=== PATIENT | female | born 1935 | race Caucasian/White ===

== ENCOUNTER 2017-05-23 18:30 | Inpatient (IN) | payer MEDICARE, BC ==
[~2017-05-23] VITALS: Ht 157.5 cm; Wt 39.5 kg
--- NOTE | 2017-05-23 18:42 | NUR ---
PT BIBRA FROM HOME TO ER BED 10. PER REPORT, PT WAS FOUND BY NEIGHBOR IN THE FLOOR. PT STATES TRIP AND FALL AND UNABLE TO GET UP. LUE BRUISING NOTED. OPT STATES L SHOULDER PAIN. GOWNED AND PLACED ON MONITOR. HYPERTENSIVE PHARMACY AIDE OTHERWISE STABLE VITALS. AWAITING MD RODGERS.
--- NOTE | 2017-05-23 18:45 | NUR ---
DR FLORES AT BEDSIDE FOR EVAL.
[2017-05-23] MEDS ORDERED: MULT-659 PO (18:50)
[2017-05-23] MEDS ORDERED: HYDR25TA4 PO (18:50)
[2017-05-23] MEDS ORDERED: CHOL100044 PO (18:50)
--- NOTE | 2017-05-23 18:55 | NUR ---
IV LINE STARTED BLOOD DRAWN AND SENT TO LAB.
[2017-05-23] MEDS ORDERED: IV NS 0.9% 500 ML BAG IV ONE (19:00)
[2017-05-23 19:16] LABS: INR 1.05 (0.87-1.13); PROTHROMBIN TIME 10.9 SECS (9.5-12.7)
[2017-05-23 19:28] LABS: TROPONIN I < 0.017 ng/mL (0.00-0.056)
[2017-05-23 19:31] LABS: CARBON DIOXIDE 30 mmol/L (21-32); CHLORIDE 97 mmol/L (98-107); CREATININE 0.3 mg/dL (0.6-1.3); GLUCOSE 128 mg/dL (74-106); SODIUM SERUM 136 mmol/L (136-145); UREA NITROGEN, BLOOD 8 mg/dL (7-18)
--- NOTE | 2017-05-23 19:31 | NUR ---
RADIOLOGY AT BEDSIDE FOR CHEST AND L HUMERUS XRAY.
[2017-05-23 19:37] LABS: ALANINE AMINOTRANSFERASE 23 U/L (12-78); ALBUMIN 4.1 g/dL (3.4-5.0); ALKALINE PHOSPHATASE 98 U/L (46-116); ASPARTATE AMINOTRANSFERASE 28 U/L (15-37); BILIRUBIN,DIRECT 0.5 mg/dL (0.0-0.2); BILIRUBIN,TOTAL 2.7 mg/dL (0.2-1.0); LIPASE 91 U/L (73-393); TOTAL PROTEIN, SERUM 7.9 g/dL (6.4-8.2)
[2017-05-23 19:59] LABS: APPEARANCE,URINE Clear (CLEAR); BILIRUBIN,URINE Negative (NEGATIVE); BLOOD, URINE Trace-intact Ery/uL (NEGATIVE); COLOR,URINE Dark (YELLOW); KETONES,URINE 40 (NEGATIVE); LEUKOCYTE ESTERASE ,URINE Negative (NEGATIVE); NITRITE, URINE Negative (NEGATIVE); PH,URINE 7.5 (5.0-8.0); PROTEIN,URINE Negative (NEGATIVE); UGLUCOSE Negative (NEGATIVE)
--- NOTE | 2017-05-23 20:11 | NUR ---
PT TO RADIOLOGY FOR HEAD AND C SPINE CT SCAN VIA [facility].
--- NOTE | 2017-05-23 20:27 | NUR ---
CALLED ANALILIA JARAMILLO, TEMPLATE FITTER DR REDDY WAS PAGED.
[2017-05-23 20:29] LABS: BACTERIA,URINE None seen /HPF (None Seen); SQUAMOUS EPITHELIAL CELL,UR Few /HPF (None Seen); WBC,URINE 0-2 /HPF (0-3)
--- NOTE | 2017-05-23 20:51 | NUR ---
CALLED ANALILIA JARAMILLO, ICT HELP DESK TECHNICIAN WAS REPAGED.
[2017-05-23] MEDS ORDERED: MAGNESIUM HYDROXIDE 30 ML UDC PO PRN (21:00)
[2017-05-23] MEDS ORDERED: ZOLPIDEM TARTRATE 5 MG TABLET PO PRN (21:00)
[2017-05-23] MEDS ORDERED: MAG HYDROX/AL HYDROX/SIMETH 30 ML UDC PO PRN (21:00)
[2017-05-23] MEDS ORDERED: Z GUARD REMEDY 2 OZ OINT TP PRN (21:00)
[2017-05-23] MEDS ORDERED: ACETAMINOPHEN 325 MG TABLET PO PRN (21:00)
[2017-05-23] MEDS ORDERED: ONDANSETRON HCL/PF 4 MG/2 ML VIAL IVP PRN (21:00)
[2017-05-23 21:01] LABS: BASOPHILS # (AUTO) 0.1 /CMM (0.0-0.2); BASOPHILS % (AUTO) 0.3 % (0.0-2.0); EOSINOPHILS # (AUTO) 0.2 /CMM (0.0-0.7); EOSINOPHILS % (AUTO) 0.7 % (0.0-6.0); HEMATOCRIT 25 % (33-45); HEMOGLOBIN 8.8 g/dL (11.5-14.8); LYMPHOCYTES # (AUTO) 0.8 /CMM (0.8-4.8); LYMPHOCYTES % (AUTO) 3.7 % (20.0-44.0); MEAN CORPUSCULAR HEMOGLOBIN 34 PG (26.0-33.0); MEAN CORPUSCULAR HGB CONC 35 g/dl (31.0-36.0); MEAN CORPUSCULAR VOLUME 98 fL (82-100); MONOCYTES # (AUTO) 2.8 /CMM (0.1-1.30); MONOCYTES % (AUTO) 13.2 % (2.0-12.0); NEUTROPHILS # (AUTO) 17.7 /CMM (1.8-8.9); NEUTROPHILS % (AUTO) 82.1 % (43.0-81.0); PLATELET COUNT (AUTO) 310 /CMM (150-450); RDW COEFFICIENT OF VARIATION 16.3 (11.5-15.0); RED BLOOD CELL COUNT(AUTO) 2.57 MIL/uL (4.0-5.2); WHITE BLOOD COUNT (AUTO) 21.6 K/uL (4.3-11.0)
--- NOTE | 2017-05-23 21:30 | NUR ---
REPORT GIVEN TO JAKE. PT AWAITING TRANSFER TO FLOOR.
[2017-05-23 22:00] VITALS: BP 144/83
[2017-05-23] MEDS ORDERED: HYDROCODONE/APAP 5/325MG 1 EACH TABLET ONE (22:13)
[2017-05-23] MEDS: HYDROCODONE/APAP 5/325MG 1 EACH TABLET PO PRN (22:15)
--- NOTE | 2017-05-23 22:30 | NUR ---
ADMISSION NOTE; A 81 YRS OLD FEMALE ADMITTED TO THE UNIT WITH THE DX OF GROUND LEVEL FALL WITH LEFT HUMERUS FRACTURE . L ARM WITH ARM IMMOBILIZER . PT IS A/O X 3 , BREATHING EVEN AND UNLABORED ON ROOM AIR . PT IS FULL CODE . PRN NORCO 5/325 PO GIVEN FOR PAIN , ALL ADMISSION ASSESSMENT DONE, BELONGINGS CHECKED . SKIN ASSESSED . HX PROVIDED BY PT HERSELF. WILL CONTINUE TO MONITOR .
[2017-05-23 23:28] LABS: LYMPHOCYTES % (MANUAL) 4 % (16-48); MONOCYTES % (MANUAL) 14 % (0-11.0); NEUTROPHILS % (MANUAL) 82 (42-76)
[2017-05-24 04:00] VITALS: BP 143/73
[2017-05-24 06:56] LABS: ALANINE AMINOTRANSFERASE 21 U/L (12-78); ALBUMIN 3.3 g/dL (3.4-5.0); ALKALINE PHOSPHATASE 72 U/L (46-116); ASPARTATE AMINOTRANSFERASE 24 U/L (15-37); BILIRUBIN,TOTAL 2.1 mg/dL (0.2-1.0); CALCIUM, SERUM 8.7 mg/dL (8.5-10.1); CARBON DIOXIDE 29 mmol/L (21-32); CHLORIDE 101 mmol/L (98-107); CREATININE 0.3 mg/dL (0.6-1.3); GLUCOSE 122 mg/dL (74-106); MAGNESIUM 1.6 mg/dL (1.8-2.4); PHOSPHORUS 3.8 mg/dL (2.5-4.9); POTASSIUM 3.7 mmol/L (3.5-5.1); SODIUM SERUM 137 mmol/L (136-145); TOTAL PROTEIN, SERUM 6.8 g/dL (6.4-8.2); UREA NITROGEN, BLOOD 12 mg/dL (7-18)
--- NOTE | 2017-05-24 07:14 | NUR ---
RN EOS NOTE; PT REMAINED STABLE DURING THE SHIFT. NO ANY DISTRESS NOTED. ALL NEEDS ATTENDED PROMPTLY. DENIED NAY PAIN AT THIS TIME . WILL ENDORSE TO NEXT SHIFT RN FOR CONTINUITY OF CARE.
--- NOTE | 2017-05-24 07:51 | NUR ---
RN/MS OPENING NOTES RECEIVED PATIENT AWAKE RESTING COMFORTABLY IN BED WITH EYES OPEN. PATIENT IS AOX3. PATIENT COMPLAINING OF PAIN 5/10 ON THE LEFT HUMERUS. PATIENT DENIES SOB. NO ACUTE DISTRESS NOTED. RESPIRATIONS APPEAR EVEN AND UNLABORED. PATIENT HAS LEFT SLING IN PLACE. PATIENT HAS BRUISING ON THE LEFT ARM AND A SKIN TEAR TO THE RIGHT ELBOW. WILL CONTINUE TO MONITOR. RIGHT FOREARM 20 G PATENT AND INTACT. NO S/S OF INFILTRATION. BED LOCKED IN THE LOWEST POSITION WITH SIDERAILS UP X2. CALL LIGHT WITHIN REACH. WILL CONTINUE TO MONITOR, ASSESS AND EDUCATE PATIENT THROUGHOUT SHIFT.
[2017-05-24 08:00] VITALS: BP 137/68
[2017-05-24] MEDS: Magnesium 1GM/D5W 100ML PREMIX 100 ML IV SCH ×2 (10:31→11:34)
[2017-05-24] MEDS: HYDROCODONE/APAP 5/325MG 1 EACH TABLET PO PRN ×2 (10:33→21:58)
[2017-05-24 10:43] LABS: CHOLESTEROL 142 mg/dL (<200); HDL CHOLESTEROL 64 mg/dL (40-60); LDL 67 mg/dL (0-99); TRIGLYCERIDES 74 mg/dL (30-150)
[2017-05-24 11:12] LABS: EOSINOPHILS % (AUTO) 0.1 % (0.0-6.0); HEMATOCRIT 24 % (33-45); LYMPHOCYTES # (AUTO) 0.8 /CMM (0.8-4.8); LYMPHOCYTES % (AUTO) 4.6 % (20.0-44.0); MEAN CORPUSCULAR HEMOGLOBIN 33 PG (26.0-33.0); MEAN CORPUSCULAR HGB CONC 34 g/dl (31.0-36.0); MEAN CORPUSCULAR VOLUME 99 fL (82-100); MONOCYTES # (AUTO) 2.4 /CMM (0.1-1.30); MONOCYTES % (AUTO) 13.6 % (2.0-12.0); NEUTROPHILS # (AUTO) 14.6 /CMM (1.8-8.9); NEUTROPHILS % (AUTO) 81.7 % (43.0-81.0); PLATELET COUNT (AUTO) 245 /CMM (150-450); RDW COEFFICIENT OF VARIATION 17.2 (11.5-15.0); RED BLOOD CELL COUNT(AUTO) 2.48 MIL/uL (4.0-5.2); WHITE BLOOD COUNT (AUTO) 17.9 K/uL (4.3-11.0)
[2017-05-24 11:14] LABS: HEMOGLOBIN 8.3 g/dL (11.5-14.8)
[2017-05-24 12:00] VITALS: BP 123/64
[2017-05-24] MEDS: IV NS 0.9% 1,000 ML IV PRN (12:37)
--- NOTE | 2017-05-24 12:52 | NUR ---
PATIENT HAD LUNCH, GINGER TAN WILL KEEP PATIENT NPO AFTER MIDNIGHT. TO BE DONE 05/25/17 IN THE AM
[2017-05-24] MEDS: CEFTRIAXONE 1 G in IV D5W 50 ML IV SCH (13:27)
--- NOTE | 2017-05-24 13:33 | NUR ---
RN NOTES URINE SAMPLE TAKEN AND SENT TO LAB. BLOOD CULTURES COLLECTED PRIOR TO BEGINNING ABX. PATIENT TO BE NPO AT MIDNIGHT FOR US TOMORROW.
[2017-05-24 16:00] VITALS: BP 125/69
--- NOTE | 2017-05-24 19:30 | NUR ---
RN INITIAL NOTES: RECEIVED REPORT FROM DOMINICK MILES, PT IN BED, AWAKE, A/O X3, ON RA, RESPIRATION EVEN AND UNLABORED, C/O 3/10 PAIN ON HER LEFT SHOULDER AREA, LEFT SHOULDER ON SLING NOTED WITH BRUISE, LEFT RADIAL PULSE PALPABLE AND NOTED WITH GOOD CAPILLARY REFILL. RFA IV ACCESS PATENT AND FLUSHING WELL, INFUSING WITH NS AT 75ML/HR. PT REFUSING SCD, STATED IT'S CAUSING DISCOMFORT ON HER LEGS, EDUCATION PROVIDED TO THE PT, PT FOR IZA OF ABDOMEN IN AM, WILL BE NPO P MN, PT AGREE. SAFETY PRECAUTIONS FOR FALL INITIATED CALL LIGHT IN REACH WILL CONTINUE TO MONITOR
--- NOTE | 2017-05-24 19:45 | NUR ---
RN CLOSING NOTES PATIENT RESTING COMFORTABLY WITH EYES CLOSED. EASILY AROUSABLE. PATIENT AOX3. RIGHT FOREARM 20 G WITH NS RUNNING AT 75ML/HR. PAIN MANAGED. DENIES SOB. RESPIRATIONS EVEN AND UNLABORED. PAIN 3/10 AT THIS TIME. WILL ENDORSE. ALL NEEDS MET DURING SHIFT. ALL MEDS GIVEN APPROPRIATE. BED LOCKED IN THE LOWEST POSITION WITH SIDE RAILS UP X2. WILL ENDORSE TO NIGHT RN FOR ZHAO.
--- NOTE | 2017-05-24 19:59 | NUR ---
PRN TYLENOL: PT C/O LEFT SHOULDER PAIN, 11/22 REQUESTING FOR TYLENOL, PRN TYLENOL 650 MG TAB PO ADMINISTERED TO THE PT AT THIS TIME,
[2017-05-24 20:00] VITALS: BP 132/79
--- NOTE | 2017-05-24 20:00 | NUR ---
RN NOTES: PT'S AGREE TO GIVE INFORMATION TO HER NEIGHBOR AND FRIEND GERARDO PANIAGUA, DISCUSS PLAN OF CARE, ALSO WOULD LIKE TO TALK TO ADDICTION SPECIALIST FOR PLACEMENT PT LIVED BY HERSELF. HE LEFT HIS PHONE NUMBER AND CAN BE REACH AT [phone], HE STATED HE WILL BE GOING TO [facility] IN AM, BUT IS WILLING TO WAIT AND TALK TO ADDICTION SPECIALIST CALL TOMORROW.
--- NOTE | 2017-05-24 21:58 | NUR ---
PRN TYLENOL: PT C/O OF SO MUCH PAIN ON HER LEFT SHOULDER AND LEFT KNEE, CRYING AND WITH FACIAL GRIMACE, HER TYLENOL WILL BE DUE AT 0200AM, SHE STATED THAT ALTHOUGH SHE UNDERSTAND DOCTOR'S RECOMMENDATION TO AVOID NORCO/NARCOTICS, DUE TO POSSIBILITY OF CONSTIPATION, SHE STATED SHE CANNOT BEAR THE PAIN ANYMORE, PRN NORCO 5/325 MG TAB PO ADMINISTERED TO THE PT AT THIS TIME, WILL CONTINUE TO MONITOR AND REASSESS Addendum: 05/24/17 at 2200 by AIDAN CUELLAR RN PRN NORCO NOT TYLENOL
[2017-05-25] MEDS: IV NS 0.9% 1,000 ML IV PRN (03:28)
[2017-05-25 04:00] VITALS: BP 133/65
--- NOTE | 2017-05-25 06:48 | NUR ---
RN CLOSING NOTES: PT IN BED, AWAKE, REMAINS A/O X3 ON RA, NO SOB NOTED, LEFT ARM SLING REMAINS IN PLACED, LEFT LEG WITH PILLOW IN BETWEEN, TO KEEP IMMOBILIZE, RIGHT FA IV ACCESS REMAINS PATENT AND FLUSHING WELL, WITH ONGOING NS AT 75ML/HR, PT NPO FOR IZA OF ABDOMEN TODAY. VS REMAINS STABLE, NEEDS ATTENDED, SAFETY PRECAUTIONS FOR FALL REMAINS ENGAGED, CALL LIGHT IN REACH, WILL ENDORSE TO DAY RN FOR ZHAO.
--- NOTE | 2017-05-25 07:49 | NUR ---
MS RN NOTES PER DR SWENSON ORDER CT SCAN OF LEFT KNEE WITHOUT CONTRAST. CHANGE TYLENOL TO ROSSANA 650MG Q6H GIVE EVEN IF PATIENT STATES NO PAIN. ORDER TRAMADOL 50MG Q6H PRN AND ONLY FOR BREAKTHROUGH ON LAST RESORT GIVE PATIENT OXYCODONE 2.5MG Q6H PRN. DISCONTINUE NORCO
[2017-05-25 08:00] VITALS: BP 147/69
[2017-05-25] MEDS ORDERED: TRAMADOL HCL 50 MG TABLET PO PRN (08:00)
[2017-05-25] MEDS ORDERED: oxyCODONE IR immediate release 5 MG CAPSULE PO PRN (09:00)
--- NOTE | 2017-05-25 12:09 | NUR ---
MS RN NOTES CALLED X RAY TO SEE IF ELI FOR US WILL BE HERE SOON. IF NOT IF I CAN FEED PATIENT. HE STATED ELI WILL BE IN SOON AND WILL LET HER KNOW TO CALL US BACK
[2017-05-25] MEDS: CEFTRIAXONE 1 G in IV D5W 50 ML IV SCH (12:37)
[2017-05-25] MEDS: ENOXAPARIN SODIUM 40 MG/0.4 ML DISP.SYRIN SQ SCH (12:43)
[2017-05-25 12:53] LABS: CALCIUM, SERUM 8.5 mg/dL (8.5-10.1); CARBON DIOXIDE 30 mmol/L (21-32); CHLORIDE 105 mmol/L (98-107); CREATININE 0.3 mg/dL (0.6-1.3); GLUCOSE 114 mg/dL (74-106); POTASSIUM 3.5 mmol/L (3.5-5.1); SODIUM SERUM 141 mmol/L (136-145); UREA NITROGEN, BLOOD 15 mg/dL (7-18)
--- NOTE | 2017-05-25 13:00 | NUR ---
MS RN NOTES CALLED ER AND ELI LIFX JASIEL IS THERE. ASKED FOR A CALL BACK FOR ETA
--- NOTE | 2017-05-25 13:04 | NUR ---
MS MILES OPENING RECEIVED PATIENT A/OX4 NPO AT THIS TIME FOR US ABD. PATIENT DENIES SOB, DIFFICULTY BREATHING AND STATES PAIN IS THERE BUT TOLERABLE WITHOUT MOVEMENT. ALL NEEDS IN REACH. ARM IN SLING AND WILL ASSIST PATIENT TO TURN Q2H. PATIENT STABLE AT THIS TIME. WILL ROUND Q2H OR LESS PER NEEDS. Addendum: 05/25/17 at 1307 by TAMICA GRIDER RN NOTE IS FOR 0730AM
[2017-05-25 13:06] LABS: ALANINE AMINOTRANSFERASE 18 U/L (12-78); ALBUMIN 2.9 g/dL (3.4-5.0); ALKALINE PHOSPHATASE 59 U/L (46-116); ASPARTATE AMINOTRANSFERASE 17 U/L (15-37); BILIRUBIN,DIRECT 0.3 mg/dL (0.0-0.2); BILIRUBIN,TOTAL 1.5 mg/dL (0.2-1.0); TOTAL PROTEIN, SERUM 6.6 g/dL (6.4-8.2)
[2017-05-25 13:08] LABS: BASOPHILS % (AUTO) 0.2 % (0.0-2.0); EOSINOPHILS % (AUTO) 0.2 % (0.0-6.0); HEMATOCRIT 22 % (33-45); HEMOGLOBIN 7.6 g/dL (11.5-14.8); LYMPHOCYTES % (AUTO) 6.3 % (20.0-44.0); MEAN CORPUSCULAR HEMOGLOBIN 34 PG (26.0-33.0); MEAN CORPUSCULAR HGB CONC 34 g/dl (31.0-36.0); MEAN CORPUSCULAR VOLUME 99 fL (82-100); MONOCYTES # (AUTO) 2.3 /CMM (0.1-1.30); MONOCYTES % (AUTO) 14.2 % (2.0-12.0); NEUTROPHILS # (AUTO) 12.9 /CMM (1.8-8.9); NEUTROPHILS % (AUTO) 79.1 % (43.0-81.0); PLATELET COUNT (AUTO) 200 /CMM (150-450); RDW COEFFICIENT OF VARIATION 16.8 (11.5-15.0); RED BLOOD CELL COUNT(AUTO) 2.23 MIL/uL (4.0-5.2); WHITE BLOOD COUNT (AUTO) 16.3 K/uL (4.3-11.0)
--- NOTE | 2017-05-25 13:30 | NUR ---
MS RN NOTES KNEE BRACE AT BEDSIDE FOR PHYSICAL THERAPY VISHAL
[2017-05-25] MEDS: CALCIUM CARB 600MG /VIT D 1 EACH TABLET PO SCH (14:42)
[2017-05-25] MEDS: ACETAMINOPHEN 325 MG TABLET PO SCH ×2 (14:43→18:00)
[2017-05-25 16:00] VITALS: BP 148/70
--- NOTE | 2017-05-25 16:00 | NUR ---
MS RN NOTES DR DECKER AWARE PATIENT URINE STEFAN AND FOUL SMELLING. NO NEW ORDERS PATIENT IS ON AX AT THIS TIME PER MD
--- NOTE | 2017-05-25 16:30 | NUR ---
MS RN NOTES DR DECKER AT BEDSIDE
--- NOTE | 2017-05-25 18:32 | NUR ---
MS RN NOTES PATIENT REFUSING BED BATH AT THIS TIME
--- NOTE | 2017-05-25 18:59 | NUR ---
MS RN CLOSING PATIENT STABLE PAIN CONTROLLED WITH PRN TRAMADOL. GERARDO FRIEND AT BEDSIDE AND ALL DUE MEDS GIVEN AND ALL NEEDS MET. CALL LIGHT IN REACH. SLING TO LEFT ARM. ICE ON LEFT KNEE AND ARM. PATIENT STATES NO NEEDS AT THIS TIME AND CARE WILL BE ENDORSED TO RN FOR ZHAO
--- NOTE | 2017-05-25 19:00 | NUR ---
MS RN NOTES RECEIVE PT RESTING IN BED, A/OX 3. NO S/S OF DISTRESS OR SOB. SAFETY MEASURES IN PLACE, ON LOW BED TO ENSURE SAFETY. CALL LIGHT WITHIN REACH. WILL CONTINUE TO MONITOR.
[2017-05-25 20:00] VITALS: BP 138/71
--- NOTE | 2017-05-26 00:02 | NUR ---
TYLENOL DUE AT 0000 REFUSED BY PATIENT DESPITE RISKS AND BENEFITS OFFERED 3 TIMES STILL REFUSED. MD AWARE PER PATIENT SHE IS NOT PAIN AT THIS TIME
[2017-05-26 04:00] VITALS: BP 135/70
[2017-05-26] MEDS: ACETAMINOPHEN 325 MG TABLET PO SCH ×4 (05:02→17:04)
--- NOTE | 2017-05-26 06:24 | NUR ---
MS RN CLOSING NOTES PATIENT COMFORTABLY ASLEEP AND EASILY AWAKEN, HEAD OF BED ELEVATED FOR BETTER LUNG EXPANISON AND GOOD CIRCULATION. TOLERATING ROOM AIR 02 SAT AT 98% PATIENT WAS ASSISTED REPOSITIONED EVERY 2 HOURS FOR SKIN MGT. IV SITE RFA 20 INTACT WITH NO S/S OF INFILTRATION NOTED. RESPIRATIONS EVEN AND UNLABORED, FREQUENT VISUAL CHECK DONE FOR SAFETY EVERY 2 HOURS. NURSING CARE RENDERED, NEEDS ATTENDED AND ANTICIPATED, KEPT CLEAN AND DRY AND COMFORTABLE, GOOD SKIN CARE PROVIDED. OFFLOAD AT ALL TIMES. SAFE HAZARD FREE ENVIRONMENT PROVIDED. CALL LIGHT WITHIN EASY TO REACH, ON LOW BED AT ALL TIMES TO ENSURE SAFETY, WILL ENDORSE TO THE NEXT SHIFT CONTINUE PLAN OF CARE
--- NOTE | 2017-05-26 07:00 | NUR ---
RN NOTES RECEIVE PT ON BED , A/Ox3, RESPIRATION EVEN AND UNLABORED, ON RA , NO SOB NOTED, NO S/S OF DISTRESS NOTED, RFA IV SITE CDI, SR UP x3, CALL LIGHT WITHIN EASY REACH, SAFETY MEASURES IN PLACED WILL CONTINUE TO MONITOR.
[2017-05-26 08:00] VITALS: BP 141/73
[2017-05-26] MEDS: CALCIUM CARB 600MG /VIT D 1 EACH TABLET PO SCH (08:19)
[2017-05-26] MEDS: ENOXAPARIN SODIUM 40 MG/0.4 ML DISP.SYRIN SQ SCH (08:19)
--- NOTE | 2017-05-26 12:00 | NUR ---
RN NOTES ENCOURAGED PO INTAKE , PT AT REST , CONTINUE TO MONITOR .
[2017-05-26] MEDS: CEFTRIAXONE 1 G in IV D5W 50 ML IV SCH (12:28)
[2017-05-26 16:00] VITALS: BP 135/70
--- NOTE | 2017-05-26 18:26 | NUR ---
RN NOTES PT REMAINS THE SAME , R FA IV SITE CDI, REFUSED TO WORK WITH PHYSICAL THERAPIST ON THIS SHIFT , VSS STABLE , SR UP x3, CALL LIGHT WITHIN EASY REACH, WILL ENDORSE TO NEXT SHIFT NURSE FOR CONTINUITY OF CARE .
--- NOTE | 2017-05-26 19:30 | NUR ---
MS RN INITIAL NOTE RECEIVED REPORT FROM KWAME MILES. PT IN BED. A/A/O X3. LUNG SOUNDS CLEAR. BOWEL SOUNDS PRESENT. PULSES PRESENT. LEFT HAND EDEMA NOTED, LEFT ARM IN SLING. ICE ON LEFT ARM AT THIS TIME. PT SAYS PAIN LEVEL IS A 4 WHEN MOVING BUT IS COMFORTABLE WHEN THERE IS NO MOVEMENT. IV PATENT AND INTACT. BED IN LOW LOCKED POSITION. CALL LIGHT WITHIN REACH. WILL CONTINUE TO MONITOR.
[2017-05-26 20:00] VITALS: BP 155/76
[2017-05-26 20:56] LABS: CALCIUM, SERUM 9.1 mg/dL (8.5-10.1); CARBON DIOXIDE 29 mmol/L (21-32); CHLORIDE 101 mmol/L (98-107); CREATININE 0.5 mg/dL (0.6-1.3); GLUCOSE 129 mg/dL (74-106); SODIUM SERUM 134 mmol/L (136-145); UREA NITROGEN, BLOOD 21 mg/dL (7-18)
[2017-05-26] MEDS ORDERED: IV NS 0.9% 250 ML IV PRN (21:00)
[2017-05-26 21:03] LABS: ALANINE AMINOTRANSFERASE 35 U/L (12-78); ALBUMIN 2.9 g/dL (3.4-5.0); ALKALINE PHOSPHATASE 63 U/L (46-116); ASPARTATE AMINOTRANSFERASE 38 U/L (15-37); BILIRUBIN,DIRECT 0.2 mg/dL (0.0-0.2); BILIRUBIN,TOTAL 0.9 mg/dL (0.2-1.0); PHOSPHORUS 3.3 mg/dL (2.5-4.9)
[2017-05-26 21:57] LABS: EOSINOPHILS # (AUTO) 0.2 /CMM (0.0-0.7)
[2017-05-26 22:31] LABS: BASOPHILS % (AUTO) 0.1 % (0.0-2.0); EOSINOPHILS % (AUTO) 0.8 % (0.0-6.0); HEMOGLOBIN 7.7 g/dL (11.5-14.8); LYMPHOCYTES # (AUTO) 1.1 /CMM (0.8-4.8); LYMPHOCYTES % (AUTO) 5.6 % (20.0-44.0); MEAN CORPUSCULAR HEMOGLOBIN 37 PG (26.0-33.0); MEAN CORPUSCULAR HGB CONC 38 g/dl (31.0-36.0); MEAN CORPUSCULAR VOLUME 99 fL (82-100); MONOCYTES # (AUTO) 2.7 /CMM (0.1-1.30); MONOCYTES % (AUTO) 14.1 % (2.0-12.0); NEUTROPHILS # (AUTO) 15.4 /CMM (1.8-8.9); NEUTROPHILS % (AUTO) 79.4 % (43.0-81.0); PLATELET COUNT (AUTO) 158 /CMM (150-450); RDW COEFFICIENT OF VARIATION 16.6 (11.5-15.0); RED BLOOD CELL COUNT(AUTO) 2.06 MIL/uL (4.0-5.2); WHITE BLOOD COUNT (AUTO) 19.4 K/uL (4.3-11.0)
[2017-05-26 22:46] LABS: HEMATOCRIT 20 % (33-45)
[2017-05-27] MEDS: ACETAMINOPHEN 325 MG TABLET PO SCH ×5 (00:18→23:54)
[2017-05-27 04:00] VITALS: BP_SYST 105; BP_SYST 143; BP_DIAS 60; BP_DIAS 74
--- NOTE | 2017-05-27 07:00 | NUR ---
RN NOTES RECEIVED PT ON BED , A/Ox3, ON RA ,NO SOB NOTED, RESPIRATION EVEN AND UNLABORED, NO SOB NOTED,R ARM SLING IN PLACED. FA IV G 20 G SITE CDI, BED LOCKED AND IN LOWEST POSITION, CONTINUE TO MONITOR PT CLOSELY AND NOTIFY MD FOR ANY SIGNIFICANT CHANGES
[2017-05-27 08:00] VITALS: BP 144/77
[2017-05-27 08:10] LABS: BASOPHILS % (AUTO) 0.1 % (0.0-2.0); EOSINOPHILS # (AUTO) 0.2 /CMM (0.0-0.7); EOSINOPHILS % (AUTO) 1.9 % (0.0-6.0); HEMATOCRIT 21 % (33-45); LYMPHOCYTES # (AUTO) 1.3 /CMM (0.8-4.8); LYMPHOCYTES % (AUTO) 10.6 % (20.0-44.0); MEAN CORPUSCULAR HEMOGLOBIN 33 PG (26.0-33.0); MEAN CORPUSCULAR HGB CONC 34 g/dl (31.0-36.0); MEAN CORPUSCULAR VOLUME 98 fL (82-100); MONOCYTES # (AUTO) 1.8 /CMM (0.1-1.30); MONOCYTES % (AUTO) 14.9 % (2.0-12.0); NEUTROPHILS # (AUTO) 8.8 /CMM (1.8-8.9); NEUTROPHILS % (AUTO) 72.5 % (43.0-81.0); PLATELET COUNT (AUTO) 227 /CMM (150-450); RDW COEFFICIENT OF VARIATION 16.9 (11.5-15.0); RED BLOOD CELL COUNT(AUTO) 2.09 MIL/uL (4.0-5.2); WHITE BLOOD COUNT (AUTO) 12.1 K/uL (4.3-11.0)
[2017-05-27 08:12] LABS: CARBON DIOXIDE 29 mmol/L (21-32); CHLORIDE 100 mmol/L (98-107); CREATININE 0.3 mg/dL (0.6-1.3); GLUCOSE 118 mg/dL (74-106); MAGNESIUM 1.7 mg/dL (1.8-2.4); PHOSPHORUS 3.7 mg/dL (2.5-4.9); POTASSIUM 3.8 mmol/L (3.5-5.1); SODIUM SERUM 134 mmol/L (136-145); UREA NITROGEN, BLOOD 13 mg/dL (7-18)
[2017-05-27 08:14] LABS: HEMOGLOBIN 6.9 g/dL (11.5-14.8)
[2017-05-27] MEDS: CALCIUM CARB 600MG /VIT D 1 EACH TABLET PO SCH (08:43)
[2017-05-27] MEDS: ENOXAPARIN SODIUM 40 MG/0.4 ML DISP.SYRIN SQ SCH (08:45)
--- NOTE | 2017-05-27 09:30 | NUR ---
RN NOTES GERARDO LEOS NP, NOTIFIED REGARDING H/H O 6.9 AND 21, PT STABLE , NO ACTIVE BLEEDING NOTED, NO NEW ORDER GIVEN , VSS STABLE , CONTINUE TO MONITOR PT CLOSELY
[2017-05-27] MEDS: Magnesium 1GM/D5W 100ML PREMIX 100 ML IV SCH ×2 (11:22→12:50)
[2017-05-27] MEDS: CEFTRIAXONE 1 G in IV D5W 50 ML IV SCH (13:55)
[2017-05-27 16:00] VITALS: BP 118/62
--- NOTE | 2017-05-27 18:00 | NUR ---
RN NOTES PT AT REST , VSS STABLE , RESPIRATION EVEN AND UNLABORED, R SHOULDER SLING IN PLACE , SR UP x3, CALL LIGHT WITHIN EASY REACH , AWAITING FOR BLOOD TRANSFUSION, BLOOD IS NOT AVAILABLE YET , WILL ENDORSE TO ARCH SUPPORT MAKER NURSE FOR CONTINUITY OF CARE.
--- NOTE | 2017-05-27 19:35 | NUR ---
RN MS INITIAL NOTE PT RECEIVED IN NO ACUTE DISTRESS. PT IS A/O X3 AND ABLE TO MAKE NEEDS KNOWN WITH ONLY SLIGHT MEMORY LAPSE AT TIMES. PT HAS RFA 20G THAT IS INTACT RUNNING TKO BUT NEEDED REINFORCEMENT. PT WITH LIMITED MOVEMENT IN LEFT SHOULDER BUT OTHERWISE OKAY. COMFORT AND SAFETY MEASURES ENSURED DURING THE SHIFT BUT WILL CONTINUE TO MONITOR FOR ANY CHANGES.
[2017-05-27 20:00] VITALS: BP 143/76
--- NOTE | 2017-05-27 22:00 | NUR ---
RN NOTE TYPE AND SCREEN RECHECKED. AWAITING RESULT AND CALL BACK FOR PRBC STATUS FROM LAB.
--- NOTE | 2017-05-27 23:10 | NUR ---
RN NOTE CALLED BACK AND WAS TOLD TO PLACE ORDER FOR PRBC WITH NEW WAY OF ORDERING. DID SO AND NOW AWAITING CALL BACK TO SCORER HELPER BLOOD.
[2017-05-28] VITALS (8 sets, daily range): BP systolic 132–155; BP diastolic 69–79
--- NOTE | 2017-05-28 05:53 | NUR ---
RN MS CLOSING NOTE PT REMAINS IN NO ACUTE DISTRESS. SLIGHT DEMENTIA NOTED DURING RISK MODELER. 1 UNIT OF PRBC WAS STARTED ON SHIFT AND ENDED ON SHIFT WITH NO TRANSFUSION REACTION NOTED. RFA 20G IS INTACT CLEAN AND DRY. SAFETY AND COMFORT MEASURES ENSURED DURING THE SHIFT. WILL ENDORSE CARE TO AM NURSE.
[2017-05-28] MEDS: ACETAMINOPHEN 325 MG TABLET PO SCH ×3 (06:15→17:15)
[2017-05-28 07:16] LABS: CALCIUM, SERUM 8.2 mg/dL (8.5-10.1); CARBON DIOXIDE 28 mmol/L (21-32); CHLORIDE 100 mmol/L (98-107); CREATININE 0.3 mg/dL (0.6-1.3); GLUCOSE 103 mg/dL (74-106); POTASSIUM 4.2 mmol/L (3.5-5.1); SODIUM SERUM 135 mmol/L (136-145); UREA NITROGEN, BLOOD 11 mg/dL (7-18)
[2017-05-28] MEDS: CALCIUM CARB 600MG /VIT D 1 EACH TABLET PO SCH (08:31)
[2017-05-28] MEDS: ENOXAPARIN SODIUM 40 MG/0.4 ML DISP.SYRIN SQ SCH (08:33)
--- NOTE | 2017-05-28 08:46 | NUR ---
GINGER MS NOTE REMOVED PINK STICKY NOTE ON EMAR FOR PT SAFETY.
[2017-05-28 09:55] LABS: BASOPHILS % (AUTO) 0.3 % (0.0-2.0); EOSINOPHILS # (AUTO) 0.3 /CMM (0.0-0.7); HEMATOCRIT 21 % (33-45); LYMPHOCYTES # (AUTO) 1.2 /CMM (0.8-4.8); MEAN CORPUSCULAR HEMOGLOBIN 32 PG (26.0-33.0); MEAN CORPUSCULAR HGB CONC 34 g/dl (31.0-36.0); MEAN CORPUSCULAR VOLUME 94 fL (82-100); MONOCYTES # (AUTO) 1.6 /CMM (0.1-1.30); MONOCYTES % (AUTO) 17.1 % (2.0-12.0); NEUTROPHILS # (AUTO) 6.3 /CMM (1.8-8.9); NEUTROPHILS % (AUTO) 66.6 % (43.0-81.0); PLATELET COUNT (AUTO) 166 /CMM (150-450); RDW COEFFICIENT OF VARIATION 17.4 (11.5-15.0); RED BLOOD CELL COUNT(AUTO) 2.19 MIL/uL (4.0-5.2); WHITE BLOOD COUNT (AUTO) 9.5 K/uL (4.3-11.0)
[2017-05-28 10:17] LABS: EOSINOPHILS % (MANUAL) 5 % (0-4); LYMPHOCYTES % (MANUAL) 6 % (16-48); MONOCYTES % (MANUAL) 16 % (0-11.0); NEUTROPHILS % (MANUAL) 73 (42-76)
--- NOTE | 2017-05-28 10:19 | NUR ---
RN NOTE LAB CALLED H/H 7.0. CALL RACHEL BENTON AND REPORTED FINDINGS. ORDERED 1 UNIT PRBC.
[2017-05-28] MEDS: CEFTRIAXONE 1 G in IV D5W 50 ML IV SCH (12:24)
--- NOTE | 2017-05-28 13:29 | NUR ---
CALLED BLOOD BANK PRBC ON HOLD PER THONY BENTON N.P. SHE VISITED PT AND WANTS A REPEAT CBC LATER THIS AFTERNOON TO REASSESS PT H/H. BLD BANK AWARE.
[2017-05-28] MEDS ORDERED: BISACODYL SUPP (10 MG) 10 MG/SUPP.RECT SUPP.RECT RC ONE (14:00)
[2017-05-28 15:47] LABS: BASOPHILS # (AUTO) 0.1 /CMM (0.0-0.2); BASOPHILS % (AUTO) 0.5 % (0.0-2.0); EOSINOPHILS # (AUTO) 0.3 /CMM (0.0-0.7); EOSINOPHILS % (AUTO) 2.4 % (0.0-6.0); HEMATOCRIT 24 % (33-45); HEMOGLOBIN 9.6 g/dL (11.5-14.8); LYMPHOCYTES # (AUTO) 1.5 /CMM (0.8-4.8); LYMPHOCYTES % (AUTO) 12.2 % (20.0-44.0); MEAN CORPUSCULAR HEMOGLOBIN 43 PG (26.0-33.0); MEAN CORPUSCULAR HGB CONC 40 g/dl (31.0-36.0); MEAN CORPUSCULAR VOLUME 108 fL (82-100); MONOCYTES # (AUTO) 1.9 /CMM (0.1-1.30); MONOCYTES % (AUTO) 15.5 % (2.0-12.0); NEUTROPHILS # (AUTO) 8.6 /CMM (1.8-8.9); NEUTROPHILS % (AUTO) 69.4 % (43.0-81.0); PLATELET COUNT (AUTO) 290 /CMM (150-450); RDW COEFFICIENT OF VARIATION 17.2 (11.5-15.0); RED BLOOD CELL COUNT(AUTO) 2.22 MIL/uL (4.0-5.2); WHITE BLOOD COUNT (AUTO) 12.3 K/uL (4.3-11.0)
[2017-05-28 15:51] LABS: BAND % (MANUAL) 2 % (0.0-5.0); EOSINOPHILS % (MANUAL) 2 % (0-4); LYMPHOCYTES % (MANUAL) 12 % (16-48); MONOCYTES % (MANUAL) 14 % (0-11.0); NEUTROPHILS % (MANUAL) 70 (42-76)
--- NOTE | 2017-05-28 17:22 | NUR ---
PT REFUSED DULCOLAX SUPP THONY N.P. ORDERED.NEIGHBOR TRANG @ BEDSIDE. EDUCATED PT ON IMPORTANCE AND REASONING. PT WANTED TO WAIT TILL TOMORROW MORNING IF PT STILL HAS NOT HAD BM. ORDER ENTERED.
--- NOTE | 2017-05-28 19:25 | NUR ---
RN MS INITIAL NOTE PT RECEIVED IN NO ACUTE DISTRESS. PT IS A/O X3 AND ABLE TO MAKE NEEDS KNOWN WITH ONLY SLIGHT MEMORY LAPSE AT TIMES. PT HAS RFA 20G THAT IS INTACT. PT WITH LIMITED MOVEMENT IN LEFT SHOULDER BUT OTHERWISE OKAY. COMFORT AND SAFETY MEASURES ENSURED DURING THE SHIFT BUT WILL CONTINUE TO MONITOR FOR ANY CHANGES.
[2017-05-29] VITALS: BP 132/79
[2017-05-29] MEDS: ACETAMINOPHEN 325 MG TABLET PO SCH ×5 (00:01→23:45)
[2017-05-29 04:00] VITALS: BP_SYST 157; BP_SYST 167; BP_DIAS 73; BP_DIAS 76
--- NOTE | 2017-05-29 06:34 | NUR ---
RN MS CLOSING NOTE PT IN STABLE CONDITION IN NO ACUTE DISTRESS. ALL DUE MEDICATIONS AND ORDERS CARRIED OUT. SAFETY AND COMFORT MEASURES ENSURED DURING THE SHIFT. WILL ENDORSE CARE TO AM NURSE.
[2017-05-29 08:00] VITALS: BP 151/81
--- NOTE | 2017-05-29 08:00 | NUR ---
RN MS INITIAL NOTE PT RECEIVED IN NO ACUTE DISTRESS. PT IS A/O X3 PT ABLE TO MAKE NEEDS KNOWN . PT HAS RFA 20G THAT IS INTACT. PT HAS LIMITED MOVEMENT IN LEFT SHOULDER DUE TO THE FX. PT IS RESTING COMFORTABLY ALL SAFETY MEASURES IN PLACE RN WILL CONTINUE TO MONITOR FOR ANY CHANGES.
[2017-05-29] MEDS: CALCIUM CARB 600MG /VIT D 1 EACH TABLET PO SCH (08:46)
[2017-05-29] MEDS: ENOXAPARIN SODIUM 40 MG/0.4 ML DISP.SYRIN SQ SCH (08:50)
[2017-05-29 08:51] LABS: CALCIUM, SERUM 8.4 mg/dL (8.5-10.1); CARBON DIOXIDE 30 mmol/L (21-32); CHLORIDE 102 mmol/L (98-107); CREATININE 0.3 mg/dL (0.6-1.3); GLUCOSE 108 mg/dL (74-106); POTASSIUM 3.8 mmol/L (3.5-5.1); SODIUM SERUM 138 mmol/L (136-145); UREA NITROGEN, BLOOD 12 mg/dL (7-18)
[2017-05-29] MEDS ORDERED: BISACODYL SUPP (10 MG) 10 MG/SUPP.RECT SUPP.RECT RC PRN (09:00)
[2017-05-29 09:22] LABS: BASOPHILS % (AUTO) 0.1 % (0.0-2.0); EOSINOPHILS # (AUTO) 0.4 /CMM (0.0-0.7); EOSINOPHILS % (AUTO) 3.8 % (0.0-6.0); HEMATOCRIT 27 % (33-45); HEMOGLOBIN 9.3 g/dL (11.5-14.8); LYMPHOCYTES # (AUTO) 1.2 /CMM (0.8-4.8); LYMPHOCYTES % (AUTO) 11.4 % (20.0-44.0); MEAN CORPUSCULAR HEMOGLOBIN 32 PG (26.0-33.0); MEAN CORPUSCULAR HGB CONC 34 g/dl (31.0-36.0); MEAN CORPUSCULAR VOLUME 95 fL (82-100); MONOCYTES % (AUTO) 18.2 % (2.0-12.0); NEUTROPHILS # (AUTO) 7.1 /CMM (1.8-8.9); NEUTROPHILS % (AUTO) 66.5 % (43.0-81.0); PLATELET COUNT (AUTO) 223 /CMM (150-450); RDW COEFFICIENT OF VARIATION 16.4 (11.5-15.0)
[2017-05-29 09:28] LABS: WHITE BLOOD COUNT (AUTO) 10.7 K/uL (4.3-11.0)
[2017-05-29 09:41] LABS: EOSINOPHILS % (MANUAL) 2 % (0-4); LYMPHOCYTES % (MANUAL) 3 % (16-48); MONOCYTES % (MANUAL) 4 % (0-11.0); NEUTROPHILS % (MANUAL) 91 (42-76)
[2017-05-29] MEDS: CEFTRIAXONE 1 G in IV D5W 50 ML IV SCH (11:46)
[2017-05-29 12:00] VITALS: BP 151/81
[2017-05-29 16:00] VITALS: BP 133/75
[2017-05-29 20:00] VITALS: BP 143/73
[2017-05-30 04:00] VITALS: BP 138/81
[2017-05-30] MEDS: ACETAMINOPHEN 325 MG TABLET PO SCH ×3 (06:00→17:24)
--- NOTE | 2017-05-30 07:12 | NUR ---
RN INITIAL NOTES: REC'D PT AWAKE ON BED, NOT IN ANY DISTRESS, A/O X 2-3 W/ PERIODS OF CONFUSION. HAS L SHOULDER FX W/ SLING, LIMITED MOVEMENT NOTED, C/O PAIN UPON MOVING, SLING IS ON. HAS RFA G20, SL, FLUSHED, PATENT & INTACT W/ NO S/SX OF INFECTION/ INFILTRATION NOTED. PROVIDED COMFORT & SAFETY MEASURES. BED KEPT LOW & IN LOCKED POS. CALL LIGHT PLACED W/IN REACH. WILL CONTINUE TO MONITOR.
[2017-05-30 08:00] VITALS: BP_SYST 101; BP_SYST 159; BP_DIAS 55; BP_DIAS 76
[2017-05-30] MEDS: CALCIUM CARB 600MG /VIT D 1 EACH TABLET PO SCH (09:14)
[2017-05-30] MEDS: ENOXAPARIN SODIUM 40 MG/0.4 ML DISP.SYRIN SQ SCH (09:23)
[2017-05-30] MEDS: CEFTRIAXONE 1 G in IV D5W 50 ML IV SCH (12:11)
[2017-05-30] MEDS ORDERED: ENOX40DI SQ (12:31)
[2017-05-30] MEDS ORDERED: OXYC5CAP3 PO (12:31)
[2017-05-30] MEDS ORDERED: LEVO750T21 PO (12:31)
[2017-05-30] MEDS ORDERED: TRAM50TA2 PO (12:31)
[2017-05-30] MEDS ORDERED: RIVA10TA PO (12:41)
[2017-05-30 16:00] VITALS: BP 106/60
--- NOTE | 2017-05-30 18:00 | NUR ---
REACHER NOTES: [facility] DOCUMENTS & INSTRUCTIONS PROVIDED TO EMT. REPORT GIVEN TO CALIXTO MILES. PT TOLERATED ROOM AIR, NO SOB. WOUND PHOTOS TAKEN AND PLACED IN CHART. IV ACCESS REMOVED, PRESSURE DRESSING APPLIED. ALL BELONGINGS SENT W/ PT. DC DOCUMENTS SIGNED BY PT. L ARM KEPT ON SLING. ID BAND REMOVED. PT LEFT IN STABLE CONDITION VIA GURNEY ACCOMPANIED BY EMT. NO CONCERNS IDENTIFIED AT THIS TIME.
== END 2017-05-30 18:39 | DRG 871 ==
LOC: ER 18:32 → MEDSG1 21:44
PROVIDERS: ADMIT Internal Medicine; ATTEND Internal Medicine
PROC: 30233N1 Transfusion of Nonautologous Red Blood Cells into Peripheral Vein, Percutaneous Approach (ICD-10-PCS; principal; 2017-05-27)
DX: A41.9 Sepsis, unspecified organism (principal); N17.0 Acute kidney failure with tubular necrosis; G93.40 Encephalopathy, unspecified; S72.402A Unspecified fracture of lower end of left femur, initial encounter for closed fracture; I50.32 Chronic diastolic (congestive) heart failure; I27.2 Other secondary pulmonary hypertension; I13.0 Hypertensive heart and chronic kidney disease with heart failure and stage 1 through stage 4 chronic kidney disease, or unspecified chronic kidney disease; M48.54XA Collapsed vertebra, not elsewhere classified, thoracic region, initial encounter for fracture; E44.1 Mild protein-calorie malnutrition; S42.252A Displaced fracture of greater tuberosity of left humerus, initial encounter for closed fracture; S42.212A Unspecified displaced fracture of surgical neck of left humerus, initial encounter for closed fracture; N39.0 Urinary tract infection, site not specified; E83.42 Hypomagnesemia; E86.0 Dehydration; F03.90 Unspecified dementia, unspecified severity, without behavioral disturbance, psychotic disturbance, mood disturbance, and anxiety; M48.02 Spinal stenosis, cervical region; W18.30XA Fall on same level, unspecified, initial encounter; Y92.008 Other place in unspecified non-institutional (private) residence as the place of occurrence of the external cause; D63.8 Anemia in other chronic diseases classified elsewhere; B96.89 Other specified bacterial agents as the cause of diseases classified elsewhere; M19.90 Unspecified osteoarthritis, unspecified site; M85.80 Other specified disorders of bone density and structure, unspecified site; N18.9 Chronic kidney disease, unspecified; Y92.002 Bathroom of unspecified non-institutional (private) residence as the place of occurrence of the external cause; I70.0 Atherosclerosis of aorta; B96.20 Unspecified Escherichia coli [E. coli] as the cause of diseases classified elsewhere; R65.20 Severe sepsis without septic shock
CPT/HCPCS: 36415; 70450-TC; 71010-TC; 72125-TC; 73060-TC; 73564-TC; 73700-TC; 76700-TC; 80048-TC; 80053-TC; 80061-TC; 80076-TC; 81000-TC; 82550-TC; 82746; 83690-TC; 83735-TC; 84100-TC; 84484-TC; 85025-TC; 85730-TC; 86850-TC; 86921-TC; 87040-TC; 87081-TC; 87086-TC; 87186-TC; 93307-TC; 97535-TC; A4606; J0696; J1650; J3475; J7030; J7040; J7050; J7060; P9016-BL; Z7610